=== PATIENT | female | born 1975 | race Caucasian/White ===

== ENCOUNTER 2021-07-23 08:26 | Outpatient (CLI) | payer OTHER, SELFPAY ==
--- NOTE | 2021-07-23 08:40 | ECHO_ITS ---
Patient Info Name: Cindy Winkler Age: 46 years : 1975 Gender: Female Ht: 62 in Wt: 160 lbs BSA: 1.81 m2 HR: 82 bpm BP: 149 / 93 mmHg Technical Quality: Fair Exam Date: 07/23/2021 8:53 AM Exam Location: [facility] Patient Status: Outpatient Admit Date: 07/23/2021 Staff Ordering Physician: Asha Bowser NP Superintendent Pipelines: Lori Marquez RDCS Attending Provider: Asha Bowser NP Referring Physician: Niels HARRIS; Exam Type: CA echo doppler color flow Study Info Indications R06.00 - Dyspnea, unspecified Complete two-dimensional, color flow and Doppler transthoracic echocardiogram is performed. Summary 1. Complete two-dimensional, color flow and Doppler transthoracic echocardiogram is performed. 2. Left ventricular chamber dimension is normal. 3. Left ventricular systolic function is normal, estimated at 65-70%. 4. There is mildly increased left ventricular wall thickness. 5. The left ventricular diastolic function is grade I diastolic dysfunction. 6. E/e' 15 is elevated. 7. Global longitudinal strain is abnormal at -13.1%. 8. Left atrial chamber dimension is mildly enlarged. 9. There is mild aortic valve sclerosis. 10. There is mild mitral valve regurgitation. 11. There is no tricuspid valve regurgitation. 12. No pulmonary hypertension, estimated pulmonary arterial systolic pressure is 29 mmHg. 13. There is trivial pericardial effusion. Left Ventricle E/e' 15 is elevated. Global longitudinal strain is abnormal at -13.1%. Left ventricular chamber dimension is normal. Left ventricular systolic function is normal, estimated at 65-70%. There is mildly increased left ventricular wall thickness. The left ventricular diastolic function is grade I diastolic dysfunction. Right Ventricle Right ventricular chamber dimension is normal. Right ventricular systolic function is normal. Left Atria Left atrial chamber dimension is mildly enlarged. Right Atria Right atrial chamber dimension is normal. Aortic Valve The aortic valve is trileaflet. There is mild aortic valve sclerosis. There is no aortic valve stenosis. There is no aortic valve regurgitation. Pulmonic Valve There is no pulmonic regurgitation. Mitral Valve There is no mitral valve stenosis. There is mild mitral valve regurgitation. Tricuspid Valve There is no tricuspid valve regurgitation. No pulmonary hypertension, estimated pulmonary arterial systolic pressure is 29 mmHg. Pericardium/Pleural There is trivial pericardial effusion. Inferior Vena Cava Normal inferior vena cava with >50% collapse upon inspiration consistent with normal right atrial pressure, 5 mmHg. Aorta The aortic root size at the sinus of Valsalva is normal. Left Ventricular Outflow Tract Name Value Normal LVOT 2D LVOT Diameter 1.9 cm LVOT Doppler LVOT Peak Gradient 7 mmHg LVOT Mean Gradient 4 mmHg LVOT VTI 28 cm LVOT VTI/AV VTI Ratio 0.9 LVOT Stroke Volume 78 ml
--- NOTE | 2021-07-23 08:41 | EST_ITS ---
Patient Info Name: Cindy Winkler Age: 46 years : 1975 Gender: Female Ht: 62 in Wt: 160 lbs BSA: 1.81 m2 HR: 86 bpm BP: 190 / 108 mmHg Heart Rhythm: Sinus Rhythm Exam Date: 07/23/2021 9:38 AM Exam Location: [facility] Stress Patient Status: Outpatient Admit Date: 07/23/2021 Staff Ordering Physician: Asha Bowser NP Attending Provider: Asha Bowser NP Exercise Technologist: Sammi Dunn CT Exercise Physician: Rudy Escobar DO Exam Type: CA stress test treadmill Study Info Indications R00.2 - Palpitations R06.00 - Dyspnea, unspecified An exercise stress test was performed. Summary 1. 1. Negative Beni exercise stress test for ischemic ST changes by ECG criteria. 2. 2. Good functional capacity, achieving 10 METs of workload. 3. 3. Baseline hypertension with hypertensive response to exercise. 4. 4. Appropriate HR response to exercise. 5. 5. Appropriate HR recovery at 1 minute post exercise. 6. 6. No imaging with stress testing. 7. 7. Patient informed of the above results. Protocol: Beni Stress ECG Details Stage: REST Duration (min): 5 min : 0 sec Speed (mph): 0.0 Grade (%): 0 HR (bpm): 79 SBP (mmHg): 190 DBP (mmHg): 108 METS: --- Stage: REST Duration (min): 10 min : 41 sec Speed (mph): 0.0 Grade (%): 0 HR (bpm): 80 SBP (mmHg): 190 DBP (mmHg): 108 METS: --- Stage: STAGE 1 Duration (min): 1 min : 0 sec Speed (mph): 1.7 Grade (%): 10 HR (bpm): 110 SBP (mmHg): 190 DBP (mmHg): 108 METS: --- Stage: STAGE 1 Duration (min): 2 min : 0 sec Speed (mph): 1.7 Grade (%): 10 HR (bpm): 103 SBP (mmHg): 190 DBP (mmHg): 108 METS: --- Stage: STAGE 1 Duration (min): 3 min : 0 sec Speed (mph): 1.7 Grade (%): 10 HR (bpm): 120 SBP (mmHg): 205 DBP (mmHg): 106 METS: --- Stage: STAGE 2 Duration (min): 1 min : 0 sec Speed (mph): 2.5 Grade (%): 12 HR (bpm): 115 SBP (mmHg): 205 DBP (mmHg): 106 METS: --- Stage: STAGE 2 Duration (min): 2 min : 0 sec Speed (mph): 2.5 Grade (%): 12 HR (bpm): 132 SBP (mmHg): 205 DBP (mmHg): 106 METS: --- Stage: STAGE 2 Duration (min): 3 min : 0 sec Speed (mph): 2.5 Grade (%): 12 HR (bpm): 130 SBP (mmHg): 216 DBP (mmHg): 109 METS: --- Stage: STAGE 3 Duration (min): 1 min : 0 sec Speed (mph): 3.4 Grade (%): 14 HR (bpm): 137 SBP (mmHg): 216 DBP (mmHg): 109 METS: --- Stage: STAGE 3 Duration (min): 2 min : 0 sec Speed (mph): 3.4 Grade (%): 14 HR (bpm): --- SBP (mmHg): 216 DBP (mmHg): 109 METS: --- Stage: STAGE 3 Duration (min): 2 min : 22 sec Speed (mph): 3.4 Grade (%): 14 HR (bpm): --- SBP (mmHg): 216 DBP (mmHg): 109 METS: --- Stage: RECOVERY Duration (min): 0 min : 37 sec Speed (mph): 0.0 Grade (%): 0
--- NOTE | 2021-07-26 10:51 | WPDHOLTEREM ---
Holter/Event Monitor Holter/Event Monitor Date of procedure: 07/23/21 Holter/Event Procedure: 48 Hr Holter Monitor Indications: Palpitations Conclusion: 1. 48 hour holter monitor on 07/23/21. 2. Underlying rhythm is sinus rhythm. HR range 60-146 bpm; average HR 85 bpm. 3. There are 19 premature supraventricular complexes. No supraventricular tachycardia. 4. There are 8 premature ventricular complexes and 3 ventricular bigeminy. No ventricular tachycardia. 5. No sinoatrial or atrioventricular blocks. No significant pauses greater than 2 seconds. 6. Patient reports symptoms of shortness of breath which demonstrate sinus rhythm, HR range 88-120 bpm.
== END 2021-07-23 08:27 | disposition home or self-care (01) ==
LOC: ANHCARD 08:30
PROVIDERS: PCP Family Medicine; Visit Provider Nurse Practitioner Family
DX: R06.00 Dyspnea, unspecified (principal); R00.2 Palpitations; R07.89 Other chest pain
CPT/HCPCS: 93017; 93225; 93226; 93306

== ENCOUNTER 2021-08-01 08:44 | Outpatient (CLI) | payer OTHER, SELFPAY ==
--- NOTE | ~2021-08-01 | US_ITS ---
EXAMINATION: US abdomen limited EXAM DATE: 08/01/2021 09:30 INDICATION: R74.01 - Elevation of levels of liver transaminase levels. TECHNIQUE: Multiple grayscale and Doppler images of the abdomen right upper quadrant were obtained (b y a technologist who performed the scan) and subsequently reviewed. There is no prior study for davis payton. FINDINGS: The pancreatic head and body are normal in appearance. The pancreatic tail is not visualized. There is echogenic liver parenchyma, hepatic steatosis. There are no focal liver lesions identified. Th ere is no evidence of intrahepatic biliary duct dilation. Portal venous flow was seen in the hepatop edal, normal direction and has normal Doppler waveform. No right-sided hydronephrosis. Common bile duct measures 3 mm, which is normal. The gallbladder fossa is unremarkable. IMPRESSION: 1. Hepatic steatosis. Reviewed, dictated and finalized at location B. IMPRESSION: 1. Hepatic steatosis.
--- NOTE | ~2021-08-01 | XR_ITS ---
EXAMINATION: XR chest 2V DATE: 08/01/2021 09:21 INDICATION: Chest pain TECHNIQUE: PA and lateral views of the chest are obtained. COMPARISON: None available FINDINGS: The lungs are free of acute opacities. There is no pleural effusion or pneumothorax. The ca rdiomediastinal silhouette is normal. The visualized bones and soft tissues are unremarkable. Surgica l clips in the right upper quadrant are likely from prior cholecystectomy. IMPRESSION: 1. No acute cardiopulmonary abnormality. Reviewed, dictated and finalized at location A.
== END 2021-08-01 08:45 | disposition home or self-care (01) ==
PROVIDERS: PCP Family Medicine; Visit Provider Nurse Practitioner Family
DX: R74.01 Elevation of levels of liver transaminase levels (principal); R00.2 Palpitations; R06.00 Dyspnea, unspecified; R07.89 Other chest pain; K76.0 Fatty (change of) liver, not elsewhere classified
CPT/HCPCS: 71046; 76705

== ENCOUNTER 2021-09-30 07:22 | Outpatient (CLI) | payer OTHER, SELFPAY ==
--- NOTE | ~2021-09-30 | US_ITS ---
EXAMINATION: US abdomen complete EXAM DATE: 09/30/2021 08:01 INDICATION: Polycythemia vera . TECHNIQUE: Multiple grayscale and Doppler images of the complete abdomen were obtained (by a technolo gist who performed the scan) and subsequently reviewed. Comparison is made to prior examination from 08/01/2021. FINDINGS: The abdominal aorta is normal in caliber. Visualized portion IVC is patent. The pancreatic head a nd body are normal in appearance. The pancreatic tail is not visualized. There is echogenic liver parenchyma, hepatic steatosis. There are no focal liver lesions identified. There is no evidence of intrahepatic biliary duct dilation. Portal venous flow was seen in the he patopedal, normal direction and has normal Doppler waveform. Common bile duct measures 4 mm, which is normal. The gallbladder fossa is unremarkable. Right kidney: There is normal contour and echogenicity. It measures 10.7 x 5.5 x 4.8 centimeters. There are no focal renal lesions identified. There is no hydronephrosis. Left kidney: There is normal contour and echogenicity. It measures 11.7 x 5.3 x 5.4 centimeters. T here are no focal renal lesions identified. There is no hydronephrosis. The spleen measures 9.2 centimeters and is morphologically normal. IMPRESSION: 1. Hepatic steatosis. Reviewed, dictated and finalized at location B. ER COVERER IMPRESSION: 1. Hepatic steatosis.
== END 2021-09-30 07:23 | disposition home or self-care (01) ==
PROVIDERS: PCP Family Medicine; Visit Provider Internal Medicine Hematology & Oncology
DX: D45 Polycythemia vera (principal); K76.0 Fatty (change of) liver, not elsewhere classified
CPT/HCPCS: 76700

== ENCOUNTER 2021-12-13 00:37 | Day surgery (SDC) | payer OTHER, SELFPAY ==
[2021-12-04 13:29] VITALS: BMI 31.0
[2021-12-13 09:48] VITALS: BP 128/71; PULSE 82; RESP 18; TEMP 36.8; O2SAT 98; BMI 31.1
[2021-12-13] MEDS: LACTATED RINGERS 1,000 ML 150 ML IV CONT (10:01)
--- NOTE | 2021-12-13 10:25 | WPDANESEPPF ---
Anes - Initial Pre Proc Eval Procedure: Operation Date: 12/13/21 10:45 Proposed Procedures p Esophagogastroduodenoscopy & Screening Colonoscopy - Tae Whitney MD Date/Time: 12/13/21 10:25 Surgeon: Tae Whitney MD Pre Op Diagnosis: chest pain, GERD, neoplasm screening Patient Data Age: 46 Gender: F Height: 1.57 m Weight: 77.4 kg Last Vital Signs Temp 98.2 F 12/13/21 09:48 Pulse 82 12/13/21 09:48 Resp 18 12/13/21 09:48 BP 128/71 12/13/21 09:48 Pulse Ox 98 12/13/21 09:48 Allergies Allergy/AdvReac Type Severity Reaction Status Date / Time latex Allergy Mild Rash Verified 12/13/21 09:47 nickel AdvReac skin Verified 12/13/21 09:47 sensitivity PLASTIC TAPE Allergy Mild Rash Uncoded 12/13/21 09:47 Home Medications Medication Instructions Recorded Confirmed Type doxycycline monohydrate 40 mg 40 mg PO DAILY 02/28/21 12/04/21 History capsule,immediate - delay release metronidazole 0.75 % topical cream 1 applic TOPICAL DAILY 02/28/21 12/04/21 History oxymetazoline 1 % topical cream 1 applic TOPICAL DAILY 02/28/21 12/04/21 History amlodipine 5 mg tablet 5 mg PO DAILY #30 tablet 08/01/21 12/04/21 Rx carvedilol 6.25 mg tablet 6.25 mg PO Q12H #60 tablet 08/01/21 12/04/21 Rx alprazolam 0.25 mg tablet 0.25 mg PO QHS PRN #20 tablet 09/11/21 12/04/21 Rx escitalopram oxalate 10 mg tablet 10 mg PO DAILY #90 tablet 09/11/21 12/04/21 Rx cholecalciferol (vitamin D3) 1,250 50,000 unit PO WEEKLY #8 cap 09/17/21 12/04/21 Rx mcg (50,000 unit) capsule omeprazole 40 mg capsule,delayed 40 mg PO DAILY #60 cap 11/21/21 12/04/21 Rx release Patient hx anesthesia problems: none Family hx anesthesia problems: none Results Review: All pre-operative results and documents have been reviewed as part of the pre-operative evaluation. PMFSH Past Medical History Medical History (Updated 10/24/21 @ 10:03 by Tae Whitney MD) Arthralgia of temporomandibular joint, unspecified side BMI 29.0-29.9,adult BMI 30.0-30.9,adult Body mass index [BMI] 28.0-28.9, adult (07/15/18) Colon cancer screening Deformity of right foot Dietary counseling and surveillance (07/30/17) Dyspnea on exertion Elevated hemoglobin Encounter for screening for lipoid disorders Family history of coronary arteriosclerosis Fullness after eating Hypersomnia with sleep apnea, unspecified Hypertensive response to exercise Nodule of finger of both hands SOB (shortness of breath) Surgical History Surgical History H/O endoscopy Family History Family History Mother Family history of elevated blood lipids CHF (congestive heart failure) A-fib Father Family history of chronic obstructive pulmonary disease History of kidney cancer Hypertension Spinal cord injury Other Cerebrovascular accident Diabetes mellitus Social History Social History (Updated 10/24/21 @ 09:24 by Deirdre Rodarte CMA) Smoking status: Never smoker Second hand tobacco smoke exposure: Yes Alcohol intake: never Alcohol use details: social Substance use: never Substance use type: does not use Living arrangements: with family Additional occupation/education comments: speech therapist Gender identity (if verbalized by the patient): Female Spiritual care concerns: No Anes - Eval Final PreProcedure Day of Procedure 12/13/21 10:25 Patient weight: obese Heart: regular rate and rhythm Lungs: clear to auscultation Airway: Mallampati scale class II Last oral intake: >/= 8 hours ASA classification: II Emergent: no Anesthetic plan: proceed Anesthesia type and monitoring: general GIVS and standard monitoring Results Review: All pre-operative results and documents have been reviewed as part of the pre-operative evaluation. Informed Consent: The patient's anesthetic bryant
--- NOTE | 2021-12-13 10:31 | PM.HPGS ---
History of Present Illness History of Present Illness Consent: Risks, benefits, and alternatives have been discussed and questions answered. Patient agrees to proceed with procedure. Chief complaint: chest pain, GERD, neoplasm screening Narrative: Cindy Winkler is a 46 year old female fullness and shortness of breath after eating, also palpitations. Work up by cardiology, pulmonary negative. Also needs screening colonoscopy. GES schedule for next week. Review of Systems Constitutional: Constitutional: Denies headache(s) and Denies weakness Eyes: Eyes: Denies blurry vision ENT: Reports Normal hearing present, Denies headache(s) and Denies neck pain Cardiovascular: Cardiovascular: Denies chest pain and Denies dyspnea Respiratory: Respiratory: Denies dyspnea Gastrointestinal: Gastrointestinal: Reports no additional gastrointestinal complaints Genitourinary: Genitourinary: Denies dysuria Musculoskeletal: Musculoskeletal: Denies neck pain Integumentary/Breasts: Skin/Breast: Denies dry skin Neurologic: Reports Normal hearing present, Denies headache(s) and Denies weakness Psychiatric: Psychiatric: Denies anxiety Endocrine: Endocrine: Denies change in body appearance Hematologic/Lymphatic: Hematologic/Lymphatic: Denies easy bleeding Allergic/Immunologic: Allergic/Immunologic: Denies urticaria PMFSH Past Medical History Medical History (Updated 10/24/21 @ 10:03 by Tae Whitney MD) Arthralgia of temporomandibular joint, unspecified side BMI 29.0-29.9,adult BMI 30.0-30.9,adult Body mass index [BMI] 28.0-28.9, adult (07/15/18) Colon cancer screening Deformity of right foot Dietary counseling and surveillance (07/30/17) Dyspnea on exertion Elevated hemoglobin Encounter for screening for lipoid disorders Family history of coronary arteriosclerosis Fullness after eating Hypersomnia with sleep apnea, unspecified Hypertensive response to exercise Nodule of finger of both hands SOB (shortness of breath) Surgical History Surgical History H/O endoscopy Family History Family History Mother Family history of elevated blood lipids CHF (congestive heart failure) A-fib Father Family history of chronic obstructive pulmonary disease History of kidney cancer Hypertension Spinal cord injury Other Cerebrovascular accident Diabetes mellitus Social History Social History (Updated 10/24/21 @ 09:24 by Deirdre Rodarte [facility]) Smoking status: Never smoker Second hand tobacco smoke exposure: Yes Alcohol intake: never Alcohol use details: social Substance use: never Substance use type: does not use Living arrangements: with family Additional occupation/education comments: speech therapist Gender identity (if verbalized by the patient): Female Spiritual care concerns: No Meds Home Medications and Allergies Home Medications Medication Instructions Recorded Confirmed Type doxycycline monohydrate 40 mg 40 mg PO DAILY 02/28/21 12/04/21 History capsule,immediate - delay release metronidazole 0.75 % topical cream 1 applic TOPICAL DAILY 02/28/21 12/04/21 History oxymetazoline 1 % topical cream 1 applic TOPICAL DAILY 02/28/21 12/04/21 History amlodipine 5 mg tablet 5 mg PO DAILY #30 tablet 08/01/21 12/04/21 Rx carvedilol 6.25 mg tablet 6.25 mg PO Q12H #60 tablet 08/01/21 12/04/21 Rx alprazolam 0.25 mg tablet 0.25 mg PO QHS PRN #20 tablet 09/11/21 12/04/21 Rx escitalopram oxalate 10 mg tablet 10 mg PO DAILY #90 tablet 09/11/21 12/04/21 Rx cholecalciferol (vitamin D3) 1,250 50,000 unit PO WEEKLY #8 cap 09/17/21 12/04/21 Rx mcg (50,000 unit) capsule omeprazole 40 mg capsule,delayed 40 mg PO DAILY #60 cap 11/21/21 12/04/21 Rx release Allergies Allergy/AdvReac Type Severity Reaction Status Date / Time latex Allergy Mild Rash Verified 12/13/21 09
[2021-12-13] MEDS: BENZOCAINE (*SP) 60 ML SPRAY CAN (HURRICAINE) 1 SPRAY MUCOUS MEM (10:37)
[2021-12-13 11:05] VITALS: BP 99/56; PULSE 79; RESP 16; O2SAT 94
[2021-12-13 11:15] VITALS: BP 103/62; PULSE 75; RESP 16; O2SAT 97
[2021-12-13 11:25] VITALS: BP 116/73; PULSE 74; RESP 20; O2SAT 100
--- NOTE | 2021-12-13 11:30 | SUR.OPER ---
EGD START 1037, END 1042 COLONOSCOPY START 1048, END 1101
== END 2021-12-13 11:41 | disposition home or self-care (01) ==
PROVIDERS: PCP Family Medicine; Visit Provider Internal Medicine Gastroenterology
PROC: 0DJ08ZZ Inspection of Upper Intestinal Tract, Via Natural or Artificial Opening Endoscopic (ICD-10-PCS; CPT 43235; principal; 2021-12-13 10:45)
DX: Z12.11 Encounter for screening for malignant neoplasm of colon (principal); K63.5 Polyp of colon; K64.8 Other hemorrhoids; K21.9 Gastro-esophageal reflux disease without esophagitis; R06.02 Shortness of breath; M26.629 Arthralgia of temporomandibular joint, unspecified side; G47.30 Sleep apnea, unspecified; G47.10 Hypersomnia, unspecified
CPT/HCPCS: 45380; 43239; 88305; J2704; J7120

== ENCOUNTER 2021-12-17 08:00 | Outpatient (CLI) | payer OTHER, SELFPAY ==
--- NOTE | ~2021-12-17 | NM_ITS ---
EXAM: NM gastric emptying study DATE: 12/17/2021 13:19 INDICATION: Gastroesophageal reflux disease with esophagitis. TECHNIQUE: A gastric emptying study was performed using the methodology of Jeff CAMPBELL, et al. J Nucl Med 2007; 48:568-572. The patient was given a meal consisting of 2 scrambled eggs labeled with 1.1 m Ci Tc-99m sulfur colloid, 2 slices of toast, two packages of jam, and approximately 120 mL of water. Simultaneous anterior and posterior 1-min images of the abdomen were obtained with the patient supine at multiple time points over a total period of 4 hours. The geometric mean of anterior and posterior views was determined, and the percentage retention was calculated for each time point. COMPARISON: Chest CT 07/23/2018 FINDINGS: Gastric retention of the radiotracer-labeled meal was 71%, 51%, and 15% at the 1-hour, 2-h our, and 4-hour time points, respectively. With this technique, apparent rapid gastric emptying is escalante ggested by <30% gastric retention at 1 hour. Delayed gastric emptying is defined by gastric retention of >90% at 1 hour, >60% retention at 2 hours, or >10% retention at 4 hours. IMPRESSION: 1. Delayed gastric emptying. Reviewed, dictated and finalized at location A.
== END 2021-12-17 08:01 | disposition home or self-care (01) ==
PROVIDERS: PCP Family Medicine; Visit Provider Internal Medicine Gastroenterology
DX: K21.00 Gastro-esophageal reflux disease with esophagitis, without bleeding (principal)
CPT/HCPCS: 78264; A9541

== ENCOUNTER 2022-06-10 17:04 | Outpatient (CLI) | payer OTHER, SELFPAY ==
--- NOTE | ~2022-06-10 | US_ITS ---
EXAMINATION: US thyroid DATE: 06/10/2022 17:52 INDICATION: Nontoxic goiter. TECHNIQUE: Multiple ultrasound images of the thyroid were obtained. COMPARISON: None. FINDINGS: The right thyroid lobe measures 5.0 x 1.7 x 1.8 cm. The left thyroid lobe measures 4.5 x 1.7 x 1.8 c m. In the right thyroid lobe, there is a 14 mm mixed cystic and solid, hypoechoic, wider than tall n odule with smooth margin without echogenic foci (TI-RADS TR3). In the left thyroid lobe, there is a 5 mm solid, very hypoechoic, wider than tall nodule with smooth margin without echogenic foci (TR4). IMPRESSION: 1. Small thyroid nodules, likely not clinically significant. No follow-up is needed. Reviewed, dictated and finalized at location A. IMPRESSION: 1. Small thyroid nodules, likely not clinically significant. No follow-up is ne eded.
== END 2022-06-10 17:05 | disposition home or self-care (01) ==
PROVIDERS: PCP Family Medicine; Visit Provider Internal Medicine Endocrinology, Diabetes & Metabolism
DX: E04.2 Nontoxic multinodular goiter (principal)
CPT/HCPCS: 76536

== ENCOUNTER 2023-08-25 08:04 | Outpatient (CLI) | payer OTHER, SELFPAY ==
--- NOTE | 2023-08-29 16:33 | WPDMETH ---
Methacholine Procedure Perform Procedure Performed Methacholine Challenge Methacholine Challenge Methacholine Challenge: DOS: 08/25/2023 REQUESTING: Brunilda Potter PA-C REASON FOR TESTING: shortness of breath METHACHOLINE CHALLENGE This test was conducted per ATS guidelines. A previous study on02/24/2018 showed normal spirometry. The patient was exposed to sequentially increasing doses of methacholine in the usual manner. Level 1 - saline Level 2 - 1.81 mcg Level 3 - 7.26 mcg Level 4 - 29.03 mcg Level 5 - 116.10 mcg Level 6 - 264.4 mcg The test was stopped after the 5th dose which was the final dose. There was no significant drop in flows. A decrease of 20% in the FEV1 is a positive result, and the testing is terminated. Flows returned to normal after bronchodilator was administered. IMPRESSION: This is a negative methacholine challenge with tno significant drop in flows after the final dose of methacholine. The best use for a methacholine challenge is to rule out asthma. Clinical correlation is advised. Susana Zendejas MD
== END 2023-08-25 08:05 | disposition home or self-care (01) ==
PROVIDERS: PCP Family Medicine; Visit Provider Physician Assistant
DX: R06.00 Dyspnea, unspecified (principal); R05.9 Cough, unspecified
CPT/HCPCS: 94070; J7674

== ENCOUNTER 2024-01-18 17:33 | Outpatient (CLI) | payer OTHER, SELFPAY ==
--- NOTE | ~2024-01-18 | XR_ITS ---
EXAMINATION: XR hand RT min 3V DATE: 01/18/2024 17:59 INDICATION: Right hand pain. TECHNIQUE: 3 views of right hand were obtained. COMPARISON: None. FINDINGS: Bone alignment is normal. No fracture. Joint spaces are normal. IMPRESSION: 1. Normal right hand. Reviewed, dictated and finalized at location E. IMPRESSION: 1. Normal right hand.
--- NOTE | ~2024-01-18 | XR_ITS ---
EXAMINATION: XR hand LT min 3V DATE: 01/18/2024 17:59 INDICATION: Left hand pain. TECHNIQUE: 3 views of left hand were obtained. COMPARISON: None. FINDINGS: Bone alignment is normal. No fracture. There is mild osteoarthritis of first metacarpophala ngeal joint and second distal interphalangeal joint. IMPRESSION: 1. Mild polyarticular osteoarthritis. Reviewed, dictated and finalized at location E.
== END 2024-01-18 17:34 | disposition home or self-care (01) ==
LOC: ANHIMG 17:33
PROVIDERS: PCP Family Medicine; Visit Provider Physician Assistant
DX: M79.641 Pain in right hand (principal); M19.042 Primary osteoarthritis, left hand
CPT/HCPCS: 73130

== ENCOUNTER 2025-04-06 12:48 | Outpatient (CLI) | payer OTHER, SELFPAY ==
--- NOTE | ~2025-04-06 | US_ITS ---
EXAMINATION: US thyroid DATE: 04/06/2025 13:04 INDICATION: Nontoxic goiter follow-up TECHNIQUE: Multiple ultrasound images of the thyroid were obtained. COMPARISON: 06/10/2022 FINDINGS: The right thyroid lobe measures 4.6 x 1.4 x 1.7 cm. Within the upper pole of the right lobe of the thyroid gland is a 12.5 x 7.8 x 8.3 mm nodule: Composition - spongiform Echogenicity - hypoechoic Shape - wider than tall Margin - smooth Echogenic foci - none. = TR2 not suspicious. The left thyroid lobe measures 4.5 x 1.3 x 1.5 cm. Within the lower pole of the left lobe of the thyroid gland is a 6.5 x 2.9 x 4.6 mm nodule: Composition - spongiform Echogenicity - hypoechoic (2) Shape - wider than tall Margin - smooth Echogenic foci - none. = TR2 not suspicious. The isthmus measures 0.3cm in anterior to posterior dimension. There is otherwise normal echotexture and echogenicity throughout the remainder of the thyroid gland. No additional discrete nodules identified. Normal vascular flow is present. IMPRESSION: TR2 nodules detected bilaterally. These nodules are not sonographically suspicious and no FNA or follow-up is recommended While follow-up is not recommended (as per TIRADs criteria) it may be performed, at the discretion of the referring clinician. Reviewed, dictated and finalized at location A. IMPRESSION: TR2 nodules detected bilaterally. These nodules are not sonographically suspicious and no FNA or follow-up is rec ommended While follow-up is not recommended (as per TIRADs criteria) it may be performed , at the discretion of the referring clinician.
== END 2025-04-06 12:49 | disposition home or self-care (01) ==
LOC: MICIMG 12:48
PROVIDERS: PCP Family Medicine; Visit Provider Internal Medicine Endocrinology, Diabetes & Metabolism
DX: E04.2 Nontoxic multinodular goiter (principal)
CPT/HCPCS: 76536